=== PATIENT | female | born 1960 | race Asian ===

== ENCOUNTER 2016-08-08 15:35 | Emergency (ER) | payer OTHER ==
[2016-08-08] MEDS ORDERED: IBUPROFEN 600 MG TABLET PO STA (15:50)
[2016-08-08] MEDS ORDERED: IBUPROFEN 600 MG TABLET PO ONE (15:51)
== END 2016-08-08 16:17 | disposition home or self-care (01) ==
DX: T23.211A Burn of second degree of right thumb (nail), initial encounter (principal); T23.171A Burn of first degree of right wrist, initial encounter; T31.0 Burns involving less than 10% of body surface; X10.2XXA Contact with fats and cooking oils, initial encounter; Y93.G3 Activity, cooking and baking; Y92.009 Unspecified place in unspecified non-institutional (private) residence as the place of occurrence of the external cause; Y99.8 Other external cause status; E11.9 Type 2 diabetes mellitus without complications; Z79.84 Long term (current) use of oral hypoglycemic drugs
CPT/HCPCS: 99282; 99283; A9270

== ENCOUNTER 2018-06-01 12:11 | Emergency (ER) | payer OTHER ==
--- NOTE | 2018-06-01 14:03 | ED Physician Documentation ---
PD HPI HEAD INJURY - Stated complaint Stated Complaint: HEAD INJURY - Chief complaint Chief Complaint: General - History obtained from History obtained from: Patient - History of Present Illness Mechanism of head injury: Blow (She was pushing a cart stacked with heavy objects and 1 fell from the top and struck on the top of the head and then the shoulder and forearm. She has pain locally in the area where it hit. She did not have any loss of consciousness. She has been acting normally and able to walk steadily. She still has headache and shoulder pain and forearm pain.) Where head injury occurred: Work Timing - onset: Today Location of injury: Left, Front Quality of pain: Pain Associated symptoms: Other (pain left shoulder and forearm where object hit as well.). No: LOC, AMS, Nausea / vomiting, Neck pain Symptoms worsen with: Palpation Contributing factors: No: Anticoagulated, Intoxicated Similar symptoms before: Has not had sx before Recently seen: Not recently seen Review of Systems Eyes: denies: Loss of vision, Decreased vision Skin: denies: Abrasion (s), Laceration (s) Musculoskeletal: denies: Neck pain, Back pain Neurologic: reports: Headache, Head injury. denies: Focal weakness, Numbness, Near syncope, Altered mental status, LOC PD PAST MEDICAL HISTORY - Past Medical History Cardiovascular: High cholesterol Endocrine/Autoimmune: Type 2 diabetes - Past Surgical History Past Surgical History: Yes General: Colonoscopy - Present Medications Home Medications: Ambulatory Orders Medication Instructions Recorded Confirmed Ibuprofen [Motrin] 800 mg PO Q8H PRN #30 tablet 08/08/16 Lisinopril 10 mg PO DAILY 08/08/16 08/08/16 Simvastatin 20 mg PO DAILY 08/08/16 08/08/16 metFORMIN [Glucophage] 500 mg PO DAILY 08/08/16 08/08/16 Hydrocodone/Acetaminophen 1 each PO Q6H PRN #12 tablet 06/01/18 [Hydrocodon-Acetaminophen 5-325] Naproxen 500 mg PO BID #20 tablet 06/01/18 - Allergies Allergies/Adverse Reactions: Allergies Allergy/AdvReac Type Severity Reaction Status Date / Time INH Allergy Rash Uncoded 06/01/18 12:42 - Social History Does the pt smoke?: No Smoking Status: Never smoker Does the pt drink ETOH?: No Does the pt have substance abuse?: No - Immunizations Immunizations are current?: Yes PD ED PE NORMAL - Vitals Vital signs reviewed: Yes - General General: Alert and oriented X 3, No acute distress, Well developed/nourished - HEENT HEENT: Other (tender left frontal and parietal area with mild local swelling. ) - Neck Neck: Supple, no meningeal sign, No bony TTP, No adenopathy - Cardiac Cardiac: RRR, No murmur - Respiratory Respiratory: Clear bilaterally - Abdomen Abdomen: Soft, Non tender - Back Back: No spinal TTP - Derm Derm: Normal color, Warm and dry - Extremities Extremities: Other (left shoulder tender at lateral shoulder without deformity. 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 ) Results - Vitals Vitals: Vital Signs - 24 hr 06/01/18 06/01/18 12:37 15:44 Temperature 36.6 C Heart Rate 70 70 Respiratory 16 16 Rate Blood Pressure 146/63 H 136/64 H O2 Saturation 98 99 Oxygen O2 Source Room air - Rads (name of study) left shoulder xray Radiology: Prelim report reviewed (no fractures. ), EMP read contemporaneously, See rad report PD MEDICAL DECISION MAKING - ED course Complexity details: considered differential (symptoms do not suggest concussion. Local headache at injury. Guidelines would recommend no imaging as low probability of ICH.), d/w patient Departure - Departure Disposition: 01 Home, Self Care Clinical Impression: Scalp contusion Qualifiers: Encounter type: initial encounter Qualified Code(s): S00.03XA - Contusion of scalp, initial encounter Shoulder contusion Qualifiers: Encounter type: initial encounter Laterality: left Qualified Code(s): S40.012A - Contusion of left shoulder, initial encounter Forearm contusion Qualifiers: Encounter type: initial encounter Laterality: left Qualified Code(s): S50.12XA - Contusion of left forearm, initial encounter Struck by falling object Qualifiers: Encounter type: initial encounter Qualified Code(s): W20.8XXA - Other cause of strike by thrown, projected or falling object, initial encounter Condition: Stable Record reviewed to determine appropriate education?: Yes Instructions: ED Contusion Scalp, ED Contusion Shoulder Prescriptions: Hydrocodone/Acetaminophen [Hydrocodon-Acetaminophen 5-325] 1 each PO Q6H PRN #12 tablet PRN Reason: pain Naproxen 500 mg PO BID #20 tablet Comments: Rest today. Light duty with the left arm for the next 2-3 days. Naproxen anti- inflammatories twice daily for the next 7-10 days. He will likely be some sore for several days to week. Add pain medicine if needed in the short-term. Recheck if any signs of concussion develop or if your injured areas are not bett er over the next week. Forms: Activity restrictions Discharge Date/Time: 06/01/18 15:45
[2018-06-01] MEDS ORDERED: IBUPROFEN 600 MG TABLET PO STA (14:19)
[2018-06-01] MEDS ORDERED: ACETAMINOPHEN 325 MG TABLET PO STA (14:19)
--- NOTE | 2018-06-01 15:37 | XRAY Report ---
Reason: object fell onto her head/shoulder/arm today Procedure Date: 06/01/2018 Accession Number: [id number] / [id number] Procedure: XR - Shoulder 3 View LT CPT Code: FULL RESULT: EXAM: LEFT SHOULDER RADIOGRAPHY EXAM DATE: 06/01/2018 03:22 PM. CLINICAL HISTORY: Object fell onto her head/shoulder/arm today. COMPARISON: None. TECHNIQUE: 3 views. FINDINGS: Bones: Normal. No fracture or bone lesion. Joints: The glenohumeral and acromioclavicular joints are normal. Soft tissues: The visualized hemithorax is unremarkable. No soft tissue swelling. IMPRESSION: Normal shoulder radiography. [facility]
[2018-06-01 15:45] VITALS: BP 136/64
== END 2018-06-01 15:45 | disposition home or self-care (01) ==
LOC: ED 12:11
DX: S00.03XA Contusion of scalp, initial encounter (principal); S40.012A Contusion of left shoulder, initial encounter; S50.12XA Contusion of left forearm, initial encounter; W20.8XXA Other cause of strike by thrown, projected or falling object, initial encounter; Y93.89 Activity, other specified; Y92.89 Other specified places as the place of occurrence of the external cause; Y99.0 Civilian activity done for income or pay; E11.9 Type 2 diabetes mellitus without complications; Z79.84 Long term (current) use of oral hypoglycemic drugs
CPT/HCPCS: 99283